=== PATIENT | female | born 1985 | race Caucasian/White ===

== ENCOUNTER 2016-11-21 11:58 | Emergency (ER) | payer BC ==
--- NOTE | 2016-11-21 12:12 | UC ---
Cardiac HPI - HPI Summary HPI Summary: complaint of chest pain that started 4 days ago intermittent dull ache in her chest - left side that radiates into her neck and shoulder episodes last for several minutes at a time during episodes denies any diaphoreisi, shortness of breath, dizziness, nausea nothing makes the ache better or worse this morning she felt her face turn red for approx 20 minutes while having episode of chest pain sees Dr Daniel- hyperlipidemia - History of Current Complaint Stated Complaint: CHEST PAIN Time Seen by Provider: 11/21/16 12:12 Hx Obtained From: Patient Chest Pain Location: Left Anterior Character: Dull/Aching Aggravating: Nothing Associated Signs & Symptoms: Positive: Chest Pain - Risk Factors Pulmonary Embolism Risk Factors: Negative Cardiac Risk Factors: Elevated Lipids, Family History AMI/ACS Risk Factors: Family History, Dyslipidemia - Allergy/Home Medications Allergies/Adverse Reactions: Allergies Allergy/AdvReac Type Severity Reaction Status Date / Time No Known Allergies Allergy Verified 01/22/14 16:28 Home Medications: Home Medications Sertraline HCl [Zoloft] 50 mg PO DAILY 11/21/16 [History Confirmed 11/21/16] PMH/Surg Hx/FS Hx/Imm Hx Previously Healthy: Yes Endocrine History Of: Reports: Dyslipidemia Psychological History Of: Reports: Anxiety - Surgical History Surgical History: Yes Surgery Procedure, Year, and Place: c-sections - Family History Known Family History: Positive: Cardiac Disease - father- CAD, [place] in his 60's grandfather- [place] in 70's paternal uncle M, Hypertension - father, grandfather, Diabetes - paternal grandparents - Social History Occupation: Employed Full-time Lives: With Family Alcohol Use: None Substance Use Type: None - Immunization History Most Recent Influenza Vaccination: 05/26 Most Recent Tetanus Shot: 11/03/13 Most Recent Pneumonia Vaccination: none Review of Systems Constitutional: Negative Skin: Negative Eyes: Negative ENT: Negative Respiratory: Negative Cardiovascular: Palpitations - feels heart racing sometimes, Chest Pain Gastrointestinal: Negative Genitourinary: Negative Motor: Negative Neurovascular: Negative Musculoskeletal: Negative Neurological: Negative Psychological: Anxious - controlled with zoloft All Other Systems Reviewed And Are Negative: Yes Physical Exam Triage Information Reviewed: Yes Appearance: No Pain Distress, Well-Nourished, Obese Vital Signs Reviewed: Yes Eyes: Positive: Conjunctiva Clear Neck: Positive: No Lymphadenopathy Respiratory: Positive: Lungs clear, Normal breath sounds, No respiratory distress, No accessory muscle use Cardiovascular: Positive: RRR, No Murmur, Pulses Normal Abdomen Description: Positive: Nontender, Soft Bowel Sounds: Positive: Present Musculoskeletal: Positive: No Edema Neurological: Positive: Alert Psychological Exam: Normal Skin Exam: Normal Diagnostics - EKG Cardiac Rate: NL Cardiac Rhythm: Sinus: Normal Ectopy: None ST Segment: Normal - Assessment/Plan Course Of Treatment: exam completed. EKG shows NSR no ectopy. discussed that she needs to proceed to the ED for full cardiac workup. pt refuses and wants to followup with her PCP and states understanding of the risks of leaving AMA. discussed s/s of when to seek emergent care. - Differential Diagnoses - Chest Pain Differential Diagnosis/HQI/PQRI: Acute [place] - Differential Diagnoses - Palpitations Differential Diagnosis/HQI/PQRI: Coronary Artery Disease - Clinical Impression Provider Diagnoses: chest pain Discharge - Discharge Plan Condition: Stable Disposition: AGAINST MEDICAL ADVICE Referrals: Mak Daniel MD [Primary Care Provider] -
[2016-11-21 12:23] VITALS: BP 135/93
== END 2016-11-21 12:53 | disposition left against medical advice (07) ==
LOC: UCEAST 11:58
DX: R07.9 Chest pain, unspecified (principal); E78.5 Hyperlipidemia, unspecified; E66.9 Obesity, unspecified; F41.9 Anxiety disorder, unspecified
CPT/HCPCS: 93005; 99202; G0463